=== PATIENT | female | born 1995 | race Caucasian/White ===

== ENCOUNTER 2023-04-07 15:07 | Emergency (ER) | payer BC, SELFPAY ==
[2023-04-07 15:11] VITALS: BP 150/92; PULSE 127; RESP 20; TEMP 36.7; O2SAT 98; BMI 30.9
--- NOTE | 2023-04-07 15:22 | ED.GENADUL1 ---
HPI - General Adult General Chief complaint: Headache Stated complaint: migraine Time Seen by Provider: 04/07/23 15:10 Source: patient Mode of arrival: walk-in Limitations: no limitations History of Present Illness HPI narrative: 28-year-old female presents with chief complaint of migraine headache. States she's had nausea and no vomiting today with photophobia. She states symptoms began two days ago when she had vomiting. Headache had improved and then returned today. She denies worse headache of her life, sudden onset, or thunderclap sensation. She states her last menses was a week ago. She is alert and oriented. No acute deficits noted neurologically. Related Data Home Medications Medication Instructions Recorded Confirmed No Known Home Medications 04/07/23 04/07/23 Allergies Allergy/AdvReac Type Severity Reaction Status Date / Time No Known Drug Allergies Allergy Verified 04/07/23 15:16 Review of Systems ROS Narrative All Systems are negative except as noted/marked.All systems reviewed and otherwise negative Exam Narrative Exam Narrative: Nurses note and vital signs reviewed and patient is not hypoxic. General: The patient appears well and in no apparent distress. Patient is resting comfortably on cart. Skin: Warm, dry, no pallor noted. There is no rash noted. Head: Normocephalic, atraumatic Eye: Normal conjunctiva, no drainage, EOMI. PERRL Ears, Nose, Mouth, and Throat: oral mucosa is moist. Nares patent. Mouth without vesicles. Ear canals patent. Tm's without Erythema Cardiovascular: Regular Rate and Rhythm Respiratory: Patient is in no distress, no accessory muscle use, lungs are clear to auscultation, no wheezing, rales or rhonchi Musculoskeletal: The patient has no evidence of calf tenderness, no pitting edema, symmetrical pulses noted bilaterally Neurological: A&O x4, normal speech Psychiatric: Cooperative Constitutional Vital Signs - 24 hr 04/07/23 15:11 Temperature 98.1 F Pulse Rate [Monitor] 127 H Respiratory Rate 20 Blood Pressure [Left Arm] 150/92 H Pulse Oximetry 98 Oxygen Delivery Method Room Air Course Vital Signs Vital signs: Vital Signs Temperature 98.1 F 04/07/23 15:11 Pulse Rate 127 H 04/07/23 15:11 Respiratory Rate 20 04/07/23 15:11 Blood Pressure 150/92 H 04/07/23 15:11 Pulse Oximetry 98 04/07/23 15:11 Oxygen Delivery Method Room Air 04/07/23 15:11 Temperature 98.1 F 04/07/23 15:11 Pulse Rate 127 H 04/07/23 15:11 Respiratory Rate 20 04/07/23 15:11 Blood Pressure 150/92 H 04/07/23 15:11 Pulse Oximetry 98 04/07/23 15:11 Oxygen Delivery Method Room Air 04/07/23 15:11 Medical Decision Making MDM Narrative Medical decision making narrative: Patient presents here with chief complaint of migraine headache. She's had headaches in the past denies worse headache of her life sudden onset or thunderclap sensation. Initially medicated here with Decadron Toradol and Phenergan. I reevaluated her [id number] she continued to have nausea. Medicated with sublingual Zofran. Vital signs are stable. patient feels improvement with medications. She'll be discharged home prescription of Zofran and Toradol follow-up with primary care physician. Differential Diagnosis Differential Diagnosis: stress headache, migraine headache Medical Records Medical records reviewed: Yes I reviewed the patient's medical records Discharge Plan Discharge Chief Complaint: Headache Clinical Impression: Migraine Patient Disposition: Home, Self-Care Time of Disposition Decision: 16:18 Prescriptions / Home Meds: No Action No Known Home Medications Instructions: Migraine Headache (ED) Stand Alone Forms: Portal Instructions Referrals: Physician,Non-Staff, MD [Primary Care Provider] - 1 week
[2023-04-07] MEDS: DEXAMETHASONE SODIUM PHOSPHATE 10 MG/ML VIAL PO (15:31)
[2023-04-07] MEDS: PROMETHAZINE HCL 25 MG/ML VIAL IM (15:31)
[2023-04-07] MEDS: KETOROLAC TROMETHAMINE 60 MG/2 ML VIAL IM (15:31)
[2023-04-07] MEDS: ONDANSETRON 4 MG RAPDIS TABLET SL (15:54)
[2023-04-07 16:47] VITALS: BP 110/78; PULSE 96; RESP 16; TEMP 37; O2SAT 97
== END 2023-04-07 16:50 | disposition home or self-care (01) ==
PROVIDERS: Emergency Provider Emergency Medicine
DX: G43.909 Migraine, unspecified, not intractable, without status migrainosus (principal)
CPT/HCPCS: 96372; 99284; J1100